=== PATIENT | female | born 1980 | race African-American/Black ===

== ENCOUNTER 2017-08-04 12:41 | Emergency (ER) | payer OTHER ==
[~2017-08-04] VITALS: Ht 160 cm; Wt 91.0 kg
[2017-08-04] MEDS ORDERED: AMLO5TAB4 PO (12:47)
[2017-08-04 15:23] LABS: BASOPHILS % 0.6 % (0.0-2.0); EOSINOPHILS % 0.4 % (0.0-5.0); HEMATOCRIT. 35.4 % (36.0-48.0); HEMOGLOBIN. 11.6 g/dL (12.0-16.0); LYMPHOCYTES % 7.3 % (20.0-50.0); MEAN CORPUSCULAR HEMOGLOBIN 25.8 pg (28.0-32.0); MEAN PLATELET VOLUME 8.2 fl (7.4-10.4); MONOCYTES % 3.3 % (2.0-8.0); NEUTROPHILS % 88.4 % (40.0-76.0); PLATELET 348 x1000/uL (130-400); RED BLOOD CELL COUNT 4.48 mill/uL (4.2-5.4); RED CELL DISTRIBUTION WIDTH 16.7 % (11.6-14.6)
[2017-08-04 15:27] LABS: CHLORIDE 99 mEq/L (98-107)
[2017-08-04 15:34] LABS: CARBON DIOXIDE 31 mEq/L (21-32)
[2017-08-04 15:36] LABS: HCG SCREEN NEGATIVE
[2017-08-04] MEDS ORDERED: POTASSIUM CHLORIDE 20MEQ TABLET SR PO ONE (15:45)
[2017-08-04 16:43] VITALS: BP 144/93
== END 2017-08-04 16:46 | disposition home or self-care (01) ==
LOC: ER 12:54
DX: R55 Syncope and collapse (principal); S00.81XA Abrasion of other part of head, initial encounter; W07.XXXA Fall from chair, initial encounter; Y93.89 Activity, other specified; Y92.69 Other specified industrial and construction area as the place of occurrence of the external cause; Y99.0 Civilian activity done for income or pay; R15.9 Full incontinence of feces; E86.0 Dehydration; E87.6 Hypokalemia; I10 Essential (primary) hypertension; D64.9 Anemia, unspecified
CPT/HCPCS: 36415; 80053; 84703; 85025; 93005; 99285